=== PATIENT | female | born 1980 | race Two or more races ===

== ENCOUNTER 2025-02-17 09:23 | Inpatient (IN) | payer MEDICAID, SELFPAY ==
[2025-02-17 09:52] VITALS: BP 143/93; PULSE 89; RESP 18; TEMP 37.1; O2SAT 99; BMI 37.6
--- NOTE | 2025-02-17 10:07 | XR_ITS ---
EXAMINATION: PA chest single view TECHNIQUE: Upright PA chest single view Date and time: February 17, 2025, 10:28 a.m., comparison October 14, 2018 INDICATIONS: Shortness of breath chest pain today FINDINGS: Minimal prominence left ventricle. 3 mm pulmonary nodule left upper lobe No interval pneumonia or pulmonary edema compared with October 14, 2018 The osseous structures are intact IMPRESSION: No interval pneumonia or pulmonary edema Recommend 3-month follow-up PA chest to document stability of small pulmonary nodule left upper lobe
--- NOTE | 2025-02-17 10:07 | EKG_ITS ---
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
--- NOTE | 2025-02-17 10:08 | PD.EDRME ---
Rapid Medical Screening Exam RME Arrival date/time: 02/17/25 09:23 This is a 44-year-old female that comes into the emergency room with complaints of chest pain that started today. Patient states it was unprovoked. Patient describes it as a pressure in her chest that nothing makes it better. Patient denies anxiety however states that because of the chest pain she got very anxious. Patient has a history of high blood pressure. She denies taking medication for this. I have greeted and performed a focused initial assessment of this patient. Initial appropriate labs ordered at this time. A comprehensive ED assessment and evaluation of the patient and analysis of all test and completion of medical decision making process will be conducted by additional ED provider. Chief Complaint: Chest Pain Time Seen by Provider: 02/17/25 09:48 Vital signs: Vital Signs Temperature 98.8 F 02/17/25 09:52 Pulse Rate 89 02/17/25 09:52 Respiratory Rate 18 02/17/25 09:52 Blood Pressure 143/93 H 02/17/25 09:52 Pulse Oximetry (%) 99 02/17/25 09:52 Oxygen Delivery Method Room Air 02/17/25 09:52
[2025-02-17 10:37] LABS: Basophils # (Auto) 0.1 Thou/mm3 (0.0-0.2); Basophils % (Auto) 1 % (0-2.5); Eosinophils # (Auto) 0.1 Thou/mm3 (0.0-0.5); Eosinophils % (Auto) 1 % (0-10); Hematocrit 41.3 % (36.0-46.0); Hemoglobin 13.7 g/dL (12.0-16.0); Immature Granulocytes Auto 0.03 Thou/mm3 (0.00-0.00); Lymphocytes # (Auto) 2.0 Thou/mm3 (1.0-4.8); Lymphocytes % (Auto) 16 % (10-50); Mean Corpuscular HGB Conc 33.2 g/dl (31.0-37.0); Mean Corpuscular Hemoglobin 27.1 pg (25.0-35.0); Mean Corpuscular Volume 82 fL (80-100); Monocytes # (Auto) 0.6 Thou/mm3 (0.0-0.8); Monocytes % (Auto) 5 % (0-12); Neutrophils # (Auto) 9.4 Thou/mm3 (1.8-7.7); Neutrophils % (Auto) 77 % (37-80); Nucleated Red Blood Cell # 0.00 Thou/mm3 (0.00-0.00); Nucleated Red Blood Cell % 0 /100 WBC (0); Platelet Count 291 Thou/mm3 (140-440); RDW Standard Deviation 40.3 fL (36.4-46.3); Red Blood Count 5.05 Miln/mm3 (4.00-5.20); White Blood Count 12.2 Thou/mm3 (3.6-11.0)
[2025-02-17 10:57] LABS: B-Type Natriuretic Peptide < 20 pg/mL (0-100)
[2025-02-17 11:00] LABS: Alanine Aminotransferase 11 U/L (10-49); Albumin, Serum 4.3 gm/dL (3.5-5.0); Albumin/Globulin Ratio 1.6 (1.2-2.2); Alkaline Phosphatase 80 U/L (46-116); Anion Gap 10 (7-16); Aspartate Amino Transferase 14 U/L (0-34); BUN/Creatinine Ratio 13 Ratio (12-20); Bilirubin,Total 0.4 mg/dL (0.3-1.2); Blood Urea Nitrogen 10 mg/dL (9-23); Calcium 8.6 mg/dL (8.3-10.6); Calcium (Corrected) 8.6 mg/dL (8.5-10.1); Carbon Dioxide 24.6 mMol/L (20.0-31.0); Chloride 105 mMol/L (98-107); Creatinine (Component) 0.8 mg/dL (0.6-1.3); Estimated Creatinine Clearance 108.8 mL/min (>60); Globulin 2.7 gm/dL (2.3-3.5); Glucose 104 mg/dL (74-106); Osmolality,Calculated 278 (275-295); Potassium 4.2 mMol/L (3.4-5.1); Sodium 140 mMol/L (136-145); Total Protein 7.0 gm/dL (5.7-8.2); Troponin I 0.023 ng/mL (0.0-0.045); eGFR > 60 See Note
[2025-02-17 11:17] LABS: Amphetamine/Methamp Scrn,U Negative (Negative); Barbiturate Screen,Urine Negative (Negative); Benzodiazepines Screen,Urine Negative (Negative); Benzoylecgonine Screen, Ur Negative (Negative); Fentanyl Screen,Urine Negative (Negative); Opiate Screen,Urine Negative (Negative); THC Screen,Urine Negative (Negative)
--- NOTE | 2025-02-17 13:23 | PD.EDCHEST ---
ED Chest Pain RME/HPI General Chief Complaint: Chest Pain Stated Complaint: CHEST PAIN WITH SOB Time Seen by Provider: 02/17/25 09:48 Arrival date/time: 02/17/25 09:23 Limitations: no limitations RME / HPI RME / HPI narrative: 02/17/25 09:23 This is a 44-year-old female that comes into the emergency room with complaints of chest pain that started today. Patient states it was unprovoked. Patient describes it as a pressure in her chest that nothing makes it better. Patient denies anxiety however states that because of the chest pain she got very anxious. Patient has a history of high blood pressure. She denies taking medication for this. I have greeted and performed a focused initial assessment of this patient. Initial appropriate labs ordered at this time. A comprehensive ED assessment and evaluation of the patient and analysis of all test and completion of medical decision making process will be conducted by additional ED provider. Dr. Salmeron evaluation. Patient is [id number] female seen emerged permit concerns for chest pain. Symptoms started while laying down facedown in bed earlier today. Denies any nausea vomiting cough runny nose dysuria hematuria melena bloody stools. No drugs alcohol smoking Related Data Home Medications ?Medication ?Instructions ?Recorded ?Confirmed semaglutide 2 mg/dose (8 mg/3 mL) 2 mg subcut .Weekly 02/17/25 02/17/25 subcutaneous pen injector (Ozempic) Allergies Allergy/AdvReac Type Severity Reaction Status Date / Time Penicillins Allergy Mild Rash Verified 02/17/25 09:26 ED Exam General Limitations: Present no limitations General appearance: Present alert and in no apparent distress Head Head exam: Present atraumatic and normocephalic Eye Eye exam: Present normal appearance and PERRL ENT ENT exam: Present normal exam and normal oropharynx Neck Neck exam: Present normal inspection Chest Chest inspection: Present normal inspection and symmetric chest wall rise Respiratory Respiratory exam: Present normal lung sounds bilaterally; Absent respiratory distress Cardiovascular Cardiovascular exam: Present regular rate and normal rhythm Abdominal Exam Abdominal exam: Present soft and tenderness (Mild tenderness palpation in the epigastrium, no rebound or guarding); Absent distention Extremities Exam Extremities exam: Present normal inspection Neurological Exam Neurological exam: Present alert, CN II-XII intact and normal gait Psychiatric Psychiatric exam: Present normal affect and normal mood Course Quality Measures none Orders Category Date Time Status EKG (ED ONLY) *Do not use* NOW Care 02/17/25 10:08 Completed EKG (ED ONLY) *Do not use* NOW Care 02/17/25 15:22 Completed Notify provider NOW Care 02/17/25 15:30 Completed Consult to Cardiology Stat Cons 02/17/25 15:25 Ordered EKG (ED Only) Stat Exams 02/17/25 10:07 Draft EKG (ED Only) Stat Exams 02/17/25 15:22 Ordered US abdomen limited Stat Exams 02/17/25 13:29 Completed XR chest 1V Stat Exams 02/17/25 10:07 Completed BNP [B-Type Natriuretic Peptide] Stat Lab 02/17/25 10:23 Completed CBC Stat Lab 02/17/25 10:23 Completed Comprehensive Metabolic Panel Stat Lab 02/17/25 10:23 Completed Drug Screen,Urine Stat Lab 02/17/25 10:30 Completed Lipase Stat Lab 02/17/25 14:40 Completed PT [Prothrombin Time with INR] Stat Lab 02/17/25 14:40 Completed PTT [Partial Thromboplastin Time] Stat Lab 02/17/25 14:40 Completed Partial Thromboplastin Time AM DRAW Lab 02/19/25 05:08 Completed Prothrombin Time with INR AM DRAW Lab 02/19/25 05:08 Completed Troponin I Stat Lab 02/17/25 10:23 Completed Troponin I Stat Lab 02/17/25 14:40 Completed Aspirin Chew Med 02/17/25 13:29 Discontinued 81 mg PO X1 ONE Heparin Inj Med 02/17/25 17:00 Discontinued 4,000 unit IV X1 ONE Heparin/D5w 25K 250 ML Ivpb [Heparin in D5w Ivpb] Med 02/17/25 17:00 Discontinued 25,000 unit in 250 ml IV 9.744 units/kg/hr Lidocaine 2% Viscous [Xylocaine 2% Viscous] Med 02/17/25 13:29 Discontinued 15 ml PO X1 ONE mg Hyd/Al Hyd/Lety Susp [Maalox Susp] Med 02/17/25 13:29 Discontinued 30 ml PO X1 ONE Vital Signs Vital signs: Vital Signs Temperature 98.8 F 02/17/25 09:52 Pulse Rate 89 02/17/25 09:52 Respiratory Rate 18 02/17/25 09:52 Blood Pressure 143/93 H 02/17/25 09:52 Pulse Oximetry (%) 99 10/19/25 09:52 Oxygen Delivery Method Room Air 02/17/25 09:52 Chest Pain MDM Narrative MDM Narrative:: Patient is a 42-year-old female seen emerged from concerns for chest pain. Vital signs and exam as listed. Concern for ACS arrhythmia electrolyte abnormality among others. Prior provider evaluated patient. Ordered labs EKG chest x-ray. Offered medication for symptom relief. Labs with evidence of leukocytosis 12.2, no left shift no other acute hematologic abnormality, no significant metabolic derangement, no transaminitis, troponin not elevated, BNP normal. Urine drug screen negative. EKG performed today at 1008, notable for sinus rhythm, normal intervals, nonspecific T wave changes, not a cardiac alert. 1:25p on reevaluation patient states that she continues to have chest pain. Patient does not know if she still has her gallbladder. States she has only had a surgery to remove a cyst on her ovary in the past. Denies any lower abdominal pain. Has mild epigastric pain. Denies drugs alcohol smoking. Symptoms started while patient was laying flat in bed. Ordered for repeat troponin, right upper quadrant ultrasound as well as lipase. Also offered medication for symptom relief. Lipase normal RUQ w/o evidence of cholecystitis, however there is a comment of primary paracenteses by the radiologist. I called and left a message for clarification. Patient does not have any history of recent travel, no intermittent fevers, no nausea no vomiting. Repeat troponin 0.350. 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 Cruz. Agrees with admission and heparin. No emergent cardiac intervention tonight but will consult on patient. Discussed case with hospitalist kindly accepts patient for admission Patient data External records reviewed:: [facility] previous records Clinical information provided by:: patient Social determinants that could affect healthcare access:: none Patient has the following chronic illnesses:: see mdm How is presenting disease/condition affected by chronic disease/condition?: uneffected by Evaluation data The following diagnostics were reviewed and interpreted by me:: lab results, radiology exam(s) and EKG tracing(s) Lab and/or radiology exams considered but not ordered:: none Interpretation Summary: see mdm Medications / Prescriptions Medications or Prescriptions considered but not ordered:: none Medication administrations:: Medication Administration History Discontinued Medications Acetaminophen (Acetaminophen 325 Mg Tablet) 650 mg PO Q6H PRN PRN Reason: Fever >100.4 or pain Stop: 03/19/25 16:38 Acetaminophen (Acetaminophen 325 Mg Tablet) 650 mg PO Q6H PRN PRN Reason: Fever >100.4 or pain Stop: 03/19/25 16:38 Acetaminophen (Acetaminophen 325 Mg Tablet) 650 mg PO Q6H PRN PRN Reason: Fever >100.4 or pain 1-3 Stop: 03/19/25 16:38 Al Hydrox/Mg Hydrox/Simethicone (Mg Hyd/Al Hyd/Lety (Maalox Reg) Susp 30 Ml Udc) 30 ml PO X1 ONE Stop: 02/17/25 13:30 Last Admin: 02/17/25 13:40 Dose: 30 ml Documented By: VL Al Hydrox/Mg Hydrox/Simethicone (Mg Hyd/Al Hyd/Lety (Maalox Reg) Susp 30 Ml Udc) 30 ml PO Q6H PRN PRN Reason: Dyspepsia Stop: 03/19/25 17:14 Aspirin (Aspirin 81 Mg Chew) 81 mg PO X1 ONE Stop: 02/17/25 13:30 Last Admin: 02/17/25 13:40 Dose: 81 mg Documented By: MELINDA Aspirin (Aspirin Ec 81 Mg Tabec) 81 mg PO QDAY ABRAM Stop: 03/20/25 08:59 Last Admin: 02/18/25 10:34 Dose: 81 mg Documented By: Admin: 02/18/25 08:25 Dose: Not Given Documented By: MAGGY Non-Admin Reason: NPO Aspirin (Aspirin Ec 81 Mg Tabec) 243 mg PO X1 ONE Stop: 02/17/25 17:01 Last Admin: 02/17/25 19:15 Dose: 243 mg Documented By: CS Atorvastatin Calcium (Atorvastatin Calcium 20 Mg Tablet) 80 mg PO HS ABRAM Stop: 03/19/25 20:59 Last Admin: 02/18/25 20:02 Dose: 80 mg Documented By: Admin: 02/17/25 21:05 Dose: 80 mg Documented By: CB Atropine Sulfate (Atropine Sulf Inj 1 Mg/Ml Vial) Confirm Administered Dose 1 mg .ROUTE .STK-MED ONE Stop: 02/19/25 06:52 Last Admin: 02/19/25 08:52 Dose: Not Given Documented By: EC Non-Admin Reason: Duplicate Medication on eMAR Clopidogrel Bisulfate (Clopidogrel Bisulfate 75 Mg Tablet) 300 mg PO X1 ONE Stop: 02/17/25 16:44 Last Admin: 02/17/25 19:15 Dose: 300 mg Documented By: CHRIS Clopidogrel Bisulfate (Clopidogrel Bisulfate 75 Mg Tablet) 75 mg PO QDAY ABRAM Stop: 03/20/25 08:59 Last Admin: 02/18/25 10:34 Dose: 75 mg Documented By: Admin: 02/18/25 08:25 Dose: Not Given Documented By: WG Non-Admin Reason: NPO Epinephrine HCl (Epinephrine Inj 0.1 Mg/Ml Syringe 10ml) Confirm Administered Dose 1 mg .ROUTE .STK-MED ONE Stop: 02/19/25 06:53 Last Admin: 02/19/25 08:53 Dose: Not Given Documented By: EC Non-Admin Reason: Duplicate Medication on eMAR Fentanyl Citrate (Fentanyl Cit Inj 50 Mcg/Ml Amp 2ml) Confirm Administered Dose 100 mcg .ROUTE .STK-MED ONE Stop: 02/19/25 06:51 Last Admin: 02/19/25 08:52 Dose: Not Given Documented By: EC Non-Admin Reason: Duplicate Medication on eMAR Flumazenil (Flumazenil Inj 0.1 Mg/Ml Vial 10 Ml) Confirm Administered Dose 1 mg .ROUTE .STK-MED ONE Stop: 02/19/25 06:53 Last Admin: 02/19/25 08:53 Dose: Not Given Documented By: EC Non-Admin Reason: Duplicate Medication on eMAR Heparin Sodium (Porcine) (Heparin Sod Inj 5000 Unit/Ml Vial) 4,000 unit IV X1 ONE; Protocol Stop: 02/17/25 17:01 Last Admin: 02/17/25 19:44 Dose: 4,000 unit Documented By: JOSE MANUEL Co-signed By: CCT Comments: MEDICATION LATE DUE TO NO IV ASSESS DURING DAY SHIFT. Heparin Sodium (Porcine) (Heparin Sod Inj 5000 Unit/Ml Vial) 4,000 unit IV X1 ONE Stop: 02/18/25 04:25 Last Admin: 02/18/25 04:44 Dose: 4,000 unit Documented By: ROSALES Co-signed By: COURTNEY Heparin Sodium (Porcine) (Heparin Sod Inj 5000 Unit/Ml Vial) 2,000 unit IVP X1 ONE Stop: 02/18/25 11:37 Last Admin: 02/18/25 11:51 Dose: 2,000 unit Documented By: MAGGY Co-signed By: OLIVA Heparin Sodium (Porcine) (Heparin Sod Inj 1000 Unit/Ml Vial 10 Ml) Confirm Administered Dose 20,000 unit .ROUTE .STK-MED ONE Stop: 02/19/25 06:53 Last Admin: 02/19/25 08:53 Dose: Not Given Documented By: EC Non-Admin Reason: Duplicate Medication on eMAR Heparin Sodium/Dextrose (Heparin In D5w Ivpb) 25,000 unit in 250 mls @ 10 mls/hr IV .Q24H ABRAM; Protocol Stop: 03/03/25 16:59 Last Titration: 02/19/25 06:00 Dose: Infused Documented By: CCT Co-signed By: IG Titration: 02/19/25 01:41 Dose: 15.744 units/kg/hr, 16.157 mls/hr Documented By: CCT Co-signed By: HV Titration: 02/18/25 19:25 Dose: 15.744 units/kg/hr, 16.157 mls/hr Documented By: CCT Co-signed By: CMC Admin: 02/18/25 14:23 Dose: 15.744 units/kg/hr, 16.157 mls/hr Documented By: WG Co-signed By: BR Titration: 02/18/25 14:23 Dose: Infused Documented By: WG Co-signed By: BR Titration: 02/18/25 11:49 Dose: 15.744 units/kg/hr, 16.157 mls/hr Documented By: WG Co-signed By: DA Titration: 02/18/25 04:45 Dose: 13.744 units/kg/hr, 14.105 mls/hr Documented By: SD Co-signed By: COURTNEY Admin: 02/17/25 19:45 Dose: 9.744 units/kg/hr, 10 mls/hr Documented By: CB Co-signed By: CCT Lactated Ringer's (Lactated Ringers) 1,000 mls @ 75 mls/hr IV .[id number] ABRAM Stop: 02/18/25 06:49 Last Admin: 02/17/25 19:52 Dose: Not Given Documented By: CB Non-Admin Reason: Discontinued Potassium Chloride (Kcl Ivpb) 10 meq in 100 mls @ 100 mls/hr IV Q1H ABRAM Stop: 02/18/25 11:41 Last Admin: 02/18/25 11:18 Dose: 100 mls/hr Documented By: Infusion: 02/18/25 11:11 Dose: Infused Documented By: Admin: 02/18/25 10:11 Dose: 100 mls/hr Documented By: Infusion: 02/18/25 10:11 Dose: Infused Documented By: Admin: 02/18/25 09:14 Dose: 100 mls/hr Documented By: Infusion: 02/18/25 09:09 Dose: Infused Documented By: Admin: 02/18/25 08:09 Dose: 100 mls/hr Documented By: MAGGY Potassium Chloride (Kcl Ivpb) 10 meq in 100 mls @ 100 mls/hr IV Q1H ABRAM Stop: 02/18/25 09:41 Nitroglycerin/Dextrose (Nitroglycerin In D5w Ivpb) Confirm Administered Dose 50 mg in 250 mls @ ud .ROUTE .STK-MED ONE Stop: 02/19/25 06:54 Last Admin: 02/19/25 08:54 Dose: Not Given Documented By: EC Non-Admin Reason: Duplicate Medication on eMAR Lidocaine HCl (Lidocaine Viscous 2% 15 Ml Udc) 15 ml PO X1 ONE Stop: 02/17/25 13:30 Last Admin: 02/17/25 13:40 Dose: 15 ml Documented By: MELINDA Lidocaine HCl (Lidocaine Inj Pf 1% 30 Ml Vial) Confirm Administered Dose 30 ml .ROUTE .STK-MED ONE Stop: 02/19/25 06:53 Last Admin: 02/19/25 08:54 Dose: Not Given Documented By: EC Non-Admin Reason: Duplicate Medication on eMAR Losartan Potassium (Losartan Potassium 25 Mg Tablet) 25 mg PO QDAY ABRAM Stop: 03/20/25 13:24 Last Admin: 02/18/25 13:35 Dose: 25 mg Documented By: MAGGY Losartan Potassium (Losartan Potassium 25 Mg Tablet) 50 mg PO QDAY ABRAM Stop: 03/21/25 08:59 Last Admin: 02/19/25 10:00 Dose: Not Given Documented By: EC Non-Admin Reason: Cancelled by Provider Comments: Hold for now per Metoprolol Tartrate (Metoprolol Tartrate Inj 1 Mg/Ml Amp 5 Ml) Confirm Administered Dose 15 mg .ROUTE .STK-MED ONE Stop: 02/19/25 06:52 Last Admin: 02/19/25 08:53 Dose: Not Given Documented By: EC Non-Admin Reason: Duplicate Medication on eMAR Midazolam HCl (Midazolam Inj 1 Mg/Ml Vial 2 Ml) Confirm Administered Dose 2 mg .ROUTE .STK-MED ONE Stop: 02/19/25 06:51 Last Admin: 02/19/25 08:52 Dose: Not Given Documented By: EC Non-Admin Reason: Duplicate Medication on eMAR Morphine Sulfate (Morphine Sulf Inj 4 Mg/Ml Vial) 1 mg IVP Q6HR PRN PRN Reason: PAIN SCALE 4-10(Mod-Sev Stop: 02/22/25 17:09 Naloxone HCl (Naloxone Inj 0.4 Mg/Ml Vial) Confirm Administered Dose 1.2 mg .ROUTE .STK-MED ONE Stop: 02/19/25 06:52 Last Admin: 02/19/25 08:53 Dose: Not Given Documented By: EC Non-Admin Reason: Duplicate Medication on eMAR Ondansetron HCl (Ondansetron Inj 2 Mg/Ml Inj 2 Ml) 4 mg IVP Q6H PRN; Protocol PRN Reason: NAUSEA OR VOMITING Stop: 03/19/25 16:38 Phenylephrine HCl (Phenylephrine Inj In Ns 100 Mcg/Ml 10 Ml Syringe) Confirm Administered Dose 1,000 mcg .ROUTE .STK-MED ONE Stop: 02/19/25 06:53 Last Admin: 02/19/25 08:54 Dose: Not Given Documented By: EC Non-Admin Reason: Duplicate Medication on eMAR Verapamil HCl (Verapamil Inj 2.5 Mg/Ml Vial 2 Ml) Confirm Administered Dose 5 mg .ROUTE .STK-MED ONE Stop: 02/19/25 06:52 Last Admin: 02/19/25 08:53 Dose: Not Given Documented By: EC Non-Admin Reason: Duplicate Medication on eMAR see above Consultations Consultation(s) initiated? (list below): Yes Diagnosis Chest Pain Differential Diagnosis: other (see mdm ) Most likely diagnosis given after review of the tests above:: NSTEMI Admission Indicated Admission indicated?: indicated Admission Request Was there a request for admission?: Yes Admission Attestation Admission request attestation: Discussed case with [] from Hospitalist service regarding admission. Discussed patients ED course, exam findings, labs, and radiology results. The Hospitalist [agrees,declines] to accept the patient for admission. Disposition Plan Disposition Plan: Admit Critical Care Time Critical Care Time Critical Care Time: Yes Total Critical Care Time (min.): 45 Attestation: Total critical care time: Approximately?45?minutes Due to a high probability of clinically significant, life threatening deterioration, the patient required my highest level of preparedness to intervene emergently and I personally spent this critical care time directly and personally managing the patient. This critical care time included obtaining a history; examining the patient; pulse oximetry; ordering and review of studies; arranging urgent treatment with development of a management plan; evaluation of patient's response to treatment; frequent reassessment; and, discussions with other providers. This critical care time was performed to assess and manage the high probability of imminent, life-threatening deterioration that could result in multi-organ failure. It was exclusive of separately billable procedures and treating other patients and teaching time. Please see MDM section and the rest of the note for further information on patient assessment and treatment. Discharge Plan Plan Patient Disposition: Admit Acute Care w/in Hospital Patient condition on transfer: Stable Problem List Clinical Impression: Chest pain Patient/Caregiver Discharge Instructions Discharge Activity: return to work once clear
--- NOTE | 2025-02-17 13:29 | XR_ITS ---
Examination: Abdomen sonogram, Limited Date and time of exam: February 17, 2025, 1348 hours, and comparison January 07, 2016 INDICATIONS: Chest pain vomiting epigastric pain today Technique: Real-time peguero scale transabdominal sonographic images of the upper abdomen obtained. Findings: Absent gallbladder. Normal common bile duct 0.4 cm Pancreatic head 2.0 cm Liver 17.2 cm fatty infiltration lobular contour Normal hepatopetal portal venous flow Patent IVC. IMPRESSION: Normal common bile duct Suspect primary parasite or disease
[2025-02-17] MEDS: LIDOCAINE VISCOUS 2% 15 ML UDC PO (13:40)
[2025-02-17] MEDS: MG HYD/AL HYD/SIME (Maalox Reg) SUSP 30 ML UDC PO (13:40)
[2025-02-17] MEDS: ASPIRIN 81 MG CHEW PO (13:40)
[2025-02-17 15:19] LABS: Lipase 47 U/L (12-53)
[2025-02-17 15:20] LABS: Troponin I 0.350 ng/mL (0.0-0.045)
[2025-02-17 16:39] LABS: INR 1.0 (0.9-1.3); Partial Thromboplastin Time 28.9 Seconds (22.0-36.0); Prothrombin Time 10.4 Seconds (9.0-12.2)
--- NOTE | 2025-02-17 16:49 | ESCONSULT_ITS ---
<Statement entered by Iesha Cruz MD - 02/22/25 13:37> I personally examined the patient and evaluated the patient with resident physician PGY 2 Dr. Marcio BRADY patient present to the hospital typical angina pectoris at rest acute coronary syndrome NSTEMI will recommend continuing IV heparin aspirin scheduled for coronary angiogram patient has fairly significant enzyme elevation as well as classic classic findings of acute coronary syndrome. Evaluated patient with resident physician agree with the treatment plan recommendation as documented. HPI Data of Consult Primary Care Provider: Yair Haynes MD Consult Narrative History of present illness: Amy Cotton is a 44-year-old female with a past medical history of prediabetes and hypertension who presents with chief complaint of chest discomfort. States that beginning around 5 AM on morning of presentation, she had abrupt onset substernal chest pressure with associated shortness of breath. No radiation into her arms or neck but did have an episode of nausea and nonbloody emesis x 1. Symptoms began while she was lying down and has never happened to her prior to this episode. She states that chest pressure comes and goes but was still experiencing it at time of interview. Shortness of breath has improved but also states that she feels anxious. Also states that her parents have never had a stroke or heart attack and has one sister who is otherwise healthy. Does not take any medications other than ozempic and used to take metoprolol in the past but her blood pressure at home has improved with weight loss. In ED, initial vitals were hemodynamically stable with BP of 143/93 and pulse of 89. Initial labs showed mild leukocytosis of 12.2 but otherwise CBC unremarkable. CHEM panel showed initial troponin 0.023 that increased to 0.3 6:05 hours. U tox negative. CXR showed a 3 mm pulmonary nodule left upper lobe. EKG showed sinus rhythm with pulse of [address] or T wave abnormalities. Cardiology consulted for workup of ACS. PMHx: prediabetes, hypertension, obesity Medications: ozempic FHx: noncontributory SHx: works at [employer]; denies smoking, alcohol consumption, or illicit drug use PSHx: tubal ligation, drainage of ovarian cyst, cholecystectomy cc:: cc: Review of Systems Review of Systems Systems Reviewed: All systems reviewed, normal except as documented Exam Vital Signs Temp Pulse Resp BP Pulse Ox O2 Del Method 98.8 F 89 18 143/93 H 99 Room Air 02/17/25 09:52 02/17/25 09:52 02/17/25 09:52 02/17/25 09:52 02/17/25 09:52 02/17/25 09:52 Narrative Exam General: AOx3, no acute distress, able to speak full sentences HEENT: NC/AT, mucous membranes moist, bilateral sclera anicteric Cardiovascular: regular rate and rhythm, S1/S2 present, no murmurs appreciated Pulmonary: clear to auscultation bilaterally, no rales/rhonchi/wheezes Abdominal: soft, non-tender, non-distended, no rebound/guarding, normal bowel sounds present Musculoskeletal: normal ROM, no peripheral edema Skin: warm and dry, intact, no rashes Neuro: CN II-XII intact, no focal deficits Results Labs 02/17/25 10:23 02/17/25 10:23 Labs: Short CBC 02/17/25 Range/Units 10:23 WBC 12.2 H (3.6-11.0) Thou/mm3 Hgb 13.7 (12.0-16.0) g/dL Hct 41.3 (36.0-46.0) % Plt Count 291 (140-440) Thou/mm3 BMP 02/17/25 10:23 Sodium 140 Potassium 4.2 Chloride 105 Carbon Dioxide 24.6 BUN 10 Creatinine 0.8 Glucose 104 Calcium 8.6 Cardiac Enzymes 02/17/25 02/17/25 Range/Units 10:23 14:40 Troponin I 0.023 0.350 H* D (0.0-0.045) ng/mL Liver Function 02/17/25 Range/Units 10:23 Total Bilirubin 0.4 (0.3-1.2) mg/dL AST 14 (0-34) U/L ALT 11 (10-49) U/L Alkaline Phosphatase 80 (46-116) U/L Albumin 4.3 (3.5-5.0) gm/dL Quality Measures Quality Measures VTE prophylaxis Medications Home Medications and Allergies Home Medications ?Medication ?Instructions ?Recorded ?Confirmed ?Type Unobtainable 10/15/18 10/15/18 History Allergies Allergy/AdvReac Type Severity Reaction Status Date / Time Penicillins Allergy Mild Rash Verified 02/17/25 09:26 Visit Medications Acetaminophen (Acetaminophen 325 Mg Tablet) 650 mg PO Q6H PRN PRN Reason: Fever >100.4 or pain Stop: 03/19/25 16:38 Aspirin (Aspirin Ec 81 Mg Tabec) 81 mg PO QDAY [facility] Stop: 03/20/25 08:59 Atorvastatin Calcium (Atorvastatin Calcium 20 Mg Tablet) 80 mg PO HS [facility] Stop: 03/19/25 20:59 Clopidogrel Bisulfate (Clopidogrel Bisulfate 75 Mg Tablet) 75 mg PO QDAY [facility] Stop: 03/20/25 08:59 Heparin Sodium (Porcine) (Heparin Sod Inj 5000 Unit/Ml Vial) 4,000 unit IV X1 ONE; Protocol Stop: 02/17/25 15:31 Heparin Sodium/Dextrose (Heparin In D5w Ivpb) 25,000 unit in 250 mls @ 12.315 mls/hr IV .[id number] [facility]; Protocol Stop: 03/03/25 15:29 Ondansetron HCl (Ondansetron Inj 2 Mg/Ml Inj 2 Ml) 4 mg IVP Q6H PRN; Protocol PRN Reason: NAUSEA OR VOMITING Stop: 03/19/25 16:38 Discontinued Medications Al Hydrox/Mg Hydrox/Simethicone (Mg Hyd/Al Hyd/Lety (Maalox Reg) Susp 30 Ml Udc) 30 ml PO X1 ONE Stop: 02/17/25 13:30 Last Admin: 02/17/25 13:40 Dose: 30 ml Aspirin (Aspirin 81 Mg Chew) 81 mg PO X1 ONE Stop: 02/17/25 13:30 Last Admin: 02/17/25 13:40 Dose: 81 mg Clopidogrel Bisulfate (Clopidogrel Bisulfate 75 Mg Tablet) 300 mg PO X1 ONE Stop: 02/17/25 16:44 Lidocaine HCl (Lidocaine Viscous 2% 15 Ml Udc) 15 ml PO X1 ONE Stop: 02/17/25 13:30 Last Admin: 02/17/25 13:40 Dose: 15 ml Assessment & Plan Plan Amy Cotton is a 44-year-old female with a past medical history of prediabetes and hypertension who is admitted and cardiology consulted for work- up of ACS. #? Acute coronary syndrome/NSTEMI Presents with abrupt onset substernal chest pressure with associated shortness of breath, nausea, and vomiting. No prior episodes of chest discomfort and no family history of cardiac disease. Risk factors include hypertension but is relatively well-controlled with weight loss. Vital signs stable. Initial troponin negative but increased to 0.35. EKG reviewed and showed sinus rhythm and no signs of ST or T wave abnormalities. Toxicology negative. Although EKG unremarkable, given history and elevated troponins will manage as ACS with plans for cardiac cath. ? Heparin drip ? Loading dose of aspirin and Plavix, aspirin 81 mg and Plavix 85 mg p.o. daily thereafter ? Agree with high intensity statin ? Pending echo ? N.p.o. after midnight for cardiac cath tomorrow versus Tuesday #Leukocytosis #Pulmonary nodule #Fatty liver ? Management per primary team ----- Plan discussed with attending physician Dr. Anthony Brady MD PGY-2 Internal Medicine
--- NOTE | 2025-02-17 16:52 | ESHP_ITS ---
Documentation for date of: 02/17/25 Senior resident attestation: Patient evaluated and examined at the bedside, plan of care discussed with rest of the team including my attending physician, except as noted. Patient is a 44-year-old female past medical history of hypertension and prediabetes, currently on Ozempic, complaint of sudden onset chest tightness and pressure, symptoms gradually improved, patient was evaluated in the ER lobby. ER spoke to vertical mill operator Dr. Lexi Cruz who recommended admitting the patient for NSTEMI starting patient on heparin drip. #NSTEMI, type I versus type II, patient did report that her chest pain was worse with inspiration, and she feels it is hard to take a deep breath. Possible differentials include pleurisy, no evidence of pneumonia on chest x-ray, pertinent for 3 mm pulmonary nodule left upper lobe, EKG sinus rhythm no acute ST segment changes. Currently on heparin drip, tentative plan for cardiac cath in the morning, patient will be made n.p.o. at midnight. 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 Patient reports this morning upon getting up from the bathroom she noticed some chest tightness, central nonradiating initially started out as 3/10. However throughout the day, patient reports 1 episode of nonbilious vomiting with increasing chest tightness up to 8/10, prompting ED visit. Reports never having similar chest tightness before. Chest pain described as tight across the anterior chest, nonradiating, waxes and wanes, and exacerbated by deep inspiration. Not dependent on position or reproducible on palpation. Denies any recent illness or travel or fever/chills. Reports using steroids earlier this year for Rodriguez's palsy in 06/2024 completed course of steroids. Currently patient endorses chest pain and shallow breathing due to pain on deep inspiration. PMHx: as above Surgical Hx: Ovarian cyst removal, tubal ligation, remote cholecystectomy secondary to stones FHx: Father diabetes, hypertension, stroke Social Hx: Denies tobacco, alcoholic, recreational/illicit drug use Allergies: Penicillin rash Medications: Ozempic 2 mg qwk In ED, BP 143/93 HR 89 RR 18 afebrile, satting 99% RA, WBC 12.2, trop 0.023- >0.350, BNP<20. In ED, given ASA 81x1, Maalox, lodicaine 15 mL PO x1. CXR no interval PNA or pulmonary edema, 3mm pulmonary nodule L upper lobe, EKG sinus rhythm rate [address] segment changes, Abd US normal CBD. Cardiology consulted for NSTEMI. Patient was admitted for management of NSTEMI. Exam Vital Signs Temp Pulse Resp BP Pulse Ox O2 Del Method 98.8 F 89 18 143/93 H 99 Room Air 02/17/25 09:52 02/17/25 09:52 02/17/25 09:52 02/17/25 09:52 02/17/25 09:52 02/17/25 09:52 Narrative Exam GENERAL: AOx3, tearful, obese well groomed female HEENT: mucous membranes moist, bilateral sclera anicteric CARDIOVASCULAR: regular rate and rhythm, S1/S2 present, no murmurs appreciated PULMONARY: clear to auscultation bilaterally, no rales/rhonchi/wheezes ABDOMINAL: soft, non-tender, non-distended, no rebound/guarding, bowel sounds present EXTREMITIES: no peripheral edema SKIN: warm and dry, intact, no rashes NEURO: CN II-XII grossly intact, no focal deficits, alert, following commands Results: Labs 02/18/25 03:15 02/18/25 03:15 Labs: Short CBC 02/17/25 Range/Units 10:23 WBC 12.2 H (3.6-11.0) Thou/mm3 Hgb 13.7 (12.0-16.0) g/dL Hct 41.3 (36.0-46.0) % Plt Count 291 (140-440) Thou/mm3 BMP 02/17/25 10:23 Sodium 140 Potassium 4.2 Chloride 105 Carbon Dioxide 24.6 BUN 10 Creatinine 0.8 Glucose 104 Calcium 8.6 Cardiac Enzymes 02/17/25 02/17/25 Range/Units 10:23 14:40 Troponin I 0.023 0.350 H* D (0.0-0.045) ng/mL Liver Function 02/17/25 Range/Units 10:23 Total Bilirubin 0.4 (0.3-1.2) mg/dL AST 14 (0-34) U/L ALT 11 (10-49) U/L Alkaline Phosphatase 80 (46-116) U/L Albumin 4.3 (3.5-5.0) gm/dL Quality Measures Quality Measures VTE prophylaxis Medications Home Medications and Allergies Home Medications ?Medication ?Instructions ?Recorded ?Confirmed ?Type semaglutide 2 mg/dose (8 mg/3 mL) 2 mg subcut .Weekly 02/17/25 02/17/25 History subcutaneous pen injector (Ozempic) Allergies Allergy/AdvReac Type Severity Reaction Status Date / Time Penicillins Allergy Mild Rash Verified 02/17/25 09:26 Visit Medications Acetaminophen (Acetaminophen 325 Mg Tablet) 650 mg PO Q6H PRN PRN Reason: Fever >100.4 or pain Stop: 03/19/25 16:38 Aspirin (Aspirin Ec 81 Mg Tabec) 81 mg PO QDAY [facility] Stop: 03/20/25 08:59 Atorvastatin Calcium (Atorvastatin Calcium 20 Mg Tablet) 80 mg PO HS [facility] Stop: 03/19/25 20:59 Clopidogrel Bisulfate (Clopidogrel Bisulfate 75 Mg Tablet) 75 mg PO QDAY [facility] Stop: 03/20/25 08:59 Heparin Sodium (Porcine) (Heparin Sod Inj 5000 Unit/Ml Vial) 4,000 unit IV X1 ONE; Protocol Stop: 02/17/25 17:01 Heparin Sodium/Dextrose (Heparin In D5w Ivpb) 25,000 unit in 250 mls @ 10 mls/hr IV .Q24H [facility]; Protocol Stop: 03/03/25 16:59 Ondansetron HCl (Ondansetron Inj 2 Mg/Ml Inj 2 Ml) 4 mg IVP Q6H PRN; Protocol PRN Reason: NAUSEA OR VOMITING Stop: 03/19/25 16:38 Discontinued Medications Al Hydrox/Mg Hydrox/Simethicone (Mg Hyd/Al Hyd/Lety (Maalox Reg) Susp 30 Ml Udc) 30 ml PO X1 ONE Stop: 02/17/25 13:30 Last Admin: 02/17/25 13:40 Dose: 30 ml Aspirin (Aspirin 81 Mg Chew) 81 mg PO X1 ONE Stop: 02/17/25 13:30 Last Admin: 02/17/25 13:40 Dose: 81 mg Clopidogrel Bisulfate (Clopidogrel Bisulfate 75 Mg Tablet) 300 mg PO X1 ONE Stop: 02/17/25 16:44 Lidocaine HCl (Lidocaine Viscous 2% 15 Ml Udc) 15 ml PO X1 ONE Stop: 02/17/25 13:30 Last Admin: 02/17/25 13:40 Dose: 15 ml Assessment & Plan Plan Amy Cotton 44F pmhx significant for HTN, prediabetes, and 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 #NSTEMI, type I vs type II #Leukocytosis, likely reactive Presented with acute chest tightness, worse in deep inspiration. Per chart review, has a hx of chest pain in 2019 and was supposed to see a vertical mill operator. Does not have vertical mill operator at this time. 06/2024, prescribed short course of prednisone for Rodriguez's palsy. Admission WBC 12.2, trop 0.023->0.350, BNP<20. UDS neg. CXR no interval PNA or pulmonary edema, 3mm pulmonary nodule L upper lobe, EKG sinus rhythm rate [address] segment changes, Abd US normal CBD. Ddx: coronary vasospasm vs NSTEMI type 1 vs autoimmune vs infectious, low suspicion as patient denies urinary symptoms and CXR neg, low suspicion for pericarditis given benign EKG and denial of recent illness Plan: - Cardiology consulted: possible cath tomorrow - Heparin drip, loading ASA 325 mg and Plavix 300 mg ordered - ASA 81 mg QD, Plavix 75 mg QD and atorvastatin 80 mg qhs - NPO at midnight - Keep K>4 and Mg>2 at all times - Morphine 1 mg q6h for pain and 1L LR 75cc/hr - F/u TTE #Prediabetes Per history. On Ozempic 2 mg qwk on Mondays Plan: - F/u A1c, lipid panel, TSH #HTN Reported well controlled with Ozempic and weight loss. Plan: - CTM vitals Hospital management: Lines: PIV Diet: cardiac, NPO at midnight Bowel: none GI prophylaxis: none DVT prophylaxis: heparin drip Disposition: tele, NSTEMI cardiac cath likely tomorrow CODE STATUS: FULL CODE Plan of care discussed with attending Dr. Morales, and PGY-3 Dr. Romero. Yamila Carlin, DO PGY-1 Internal Medicine Attending Provider Attestation/Addendum I have seen and examined the patient. I was physically present for the rodas portions of the services provided including history, physical exam, diagnosis, treatment plans and orders. I agree with assessment and plan of care as documented by residents. After examination of the patient and review of the clinical data I feel that this patient needs admission to the hospital for further treatment/evaluation. Even though this this note was carefully revised there may still be minor errors in entry specialists due to voice recognition software. Chris Morales MD
[2025-02-17 17:17] VITALS: BP 147/96; PULSE 88; RESP 20; TEMP 37.1; O2SAT 99
[2025-02-17 17:23] VITALS: BMI 37.5
[2025-02-17] MEDS: ASPIRIN EC 81 MG TABEC 243 MG PO (19:15)
[2025-02-17] MEDS: CLOPIDOGREL BISULFATE 75 MG TABLET 300 MG PO (19:15)
[2025-02-17 19:25] VITALS: BP 139/99; PULSE 89; RESP 19; TEMP 37; O2SAT 95
[2025-02-17] MEDS: HEPARIN SOD INJ 5000 UNIT/ML VIAL 4000 UNIT IV (19:44)
[2025-02-17] MEDS: Heparin/D5w 25K 250 ML Ivpb 25,000 UNIT/250 ML BAG 10 UNIT IV (19:45)
[2025-02-17 21:04] LABS: Troponin I 1.858 ng/mL (0.0-0.045)
[2025-02-17] MEDS: ATORVASTATIN CALCIUM 20 MG TABLET 80 MG PO (21:05)
[2025-02-17 21:08] VITALS: BP 153/89; PULSE 90; RESP 16; TEMP 36.7; O2SAT 95
[2025-02-17 21:44] LABS: Partial Thromboplastin Time 73.0 Seconds (22.0-36.0)
[2025-02-18] VITALS (10 sets, daily range): BP systolic 148–157; BP diastolic 89–100; PULSE 79–114; RESP 18–96; TEMP 36.1–36.9; O2SAT 92–99; BMI 38.1
[2025-02-18 03:36] LABS: Basophils # (Auto) 0.1 Thou/mm3 (0.0-0.2); Basophils % (Auto) 1 % (0-2.5); Eosinophils # (Auto) 0.1 Thou/mm3 (0.0-0.5); Eosinophils % (Auto) 1 % (0-10); Hematocrit 40.8 % (36.0-46.0); Hemoglobin 13.2 g/dL (12.0-16.0); Immature Granulocytes Auto 0.03 Thou/mm3 (0.00-0.00); Lymphocytes # (Auto) 3.1 Thou/mm3 (1.0-4.8); Lymphocytes % (Auto) 27 % (10-50); Mean Corpuscular HGB Conc 32.4 g/dl (31.0-37.0); Mean Corpuscular Hemoglobin 27.0 pg (25.0-35.0); Mean Corpuscular Volume 83 fL (80-100); Monocytes # (Auto) 0.6 Thou/mm3 (0.0-0.8); Monocytes % (Auto) 5 % (0-12); Neutrophils # (Auto) 7.7 Thou/mm3 (1.8-7.7); Neutrophils % (Auto) 66 % (37-80); Nucleated Red Blood Cell # 0.00 Thou/mm3 (0.00-0.00); Nucleated Red Blood Cell % 0 /100 WBC (0); Platelet Count 272 Thou/mm3 (140-440); RDW Standard Deviation 41.4 fL (36.4-46.3); Red Blood Count 4.89 Miln/mm3 (4.00-5.20); White Blood Count 11.6 Thou/mm3 (3.6-11.0)
[2025-02-18 03:46] LABS: Glucose Estimated Average 111 mg/dL (80-131); Hemoglobin A1C 5.5 % Hgb (4.8-6.0)
[2025-02-18 03:51] LABS: Partial Thromboplastin Time 34.7 Seconds (22.0-36.0)
[2025-02-18 04:10] LABS: Alanine Aminotransferase 11 U/L (10-49); Albumin, Serum 3.8 gm/dL (3.5-5.0); Albumin/Globulin Ratio 1.4 (1.2-2.2); Alkaline Phosphatase 77 U/L (46-116); Anion Gap 8 (7-16); Aspartate Amino Transferase 27 U/L (0-34); BUN/Creatinine Ratio 11 Ratio (12-20); Bilirubin,Total 0.5 mg/dL (0.3-1.2); Blood Urea Nitrogen 8 mg/dL (9-23); Calcium 8.6 mg/dL (8.3-10.6); Calcium (Corrected) 8.8 mg/dL (8.5-10.1); Carbon Dioxide 26.0 mMol/L (20.0-31.0); Cardiac Risk Estimate 3.6 RATIO (3.7-5.6); Chloride 105 mMol/L (98-107); Cholesterol 133 mg/dL (132-200); Creatinine (Component) 0.7 mg/dL (0.6-1.3); Estimated Creatinine Clearance 124.3 mL/min (>60); Free T4 (Free Thyroxine) 1.15 ng/dL (0.89-1.76); Globulin 2.7 gm/dL (2.3-3.5); Glucose 102 mg/dL (74-106); HDL Cholesterol 37 mg/dL (40-60); LDL Cholesterol,Calculated 44 mg/dL (0-130); Magnesium 2.0 mg/dL (1.6-2.6); Osmolality,Calculated 275 (275-295); Potassium 3.4 mMol/L (3.4-5.1); Sodium 139 mMol/L (136-145); Thyroid Stimulating Hormone 1.84 uIU/mL (0.55-4.78); Total Protein 6.5 gm/dL (5.7-8.2); Triglycerides 259 mg/dL (30-150); eGFR > 60 See Note
[2025-02-18 04:11] LABS: Troponin I 4.740 ng/mL (0.0-0.045)
[2025-02-18] MEDS: HEPARIN SOD INJ 5000 UNIT/ML VIAL 4000 UNIT IV (04:44)
[2025-02-18] MEDS: POTASSIUM CHL 10 mEq IVPB 10 MEQ/100 ML BAG 100 MEQ IV ×4 (08:09→11:18)
--- NOTE | 2025-02-18 08:38 | ECHO_ITS ---
Transthoracic Echo Report Ht (in): 65 Wt (lb): 226 Exam Location: Echo Lab Status: Inpatient Dining Service Inspector: Mary Cueva Indications: Procedure Performed: BP: 154 / 100 HR: MEASUREMENTS (Male / Female) Normal Values 2D ECHO LV Diastolic Diameter PLAX 4.3 cm 4.2 - 5.9 / 3.9 - 5.3 cm LV Systolic Diameter PLAX 2.7 cm IVS Diastolic Thickness 1.0 cm 0.6 - 1.0 / 0.6 - 0.9 cm LVPW Diastolic Thickness 1.1 cm 0.6 - 1.0 / 0.6 - 0.9 cm LV Relative Wall Thickness 0.5 LVOT Diameter 1.9 cm LA Systolic Diameter LX 2.8 cm 3.0 - 4.0 / 2.7 - 3.8 cm LV Ejection Fraction MOD BP 58.6 % >= 55 % LV Ejection Fraction MOD 4C 58.5 % LV Ejection Fraction 4C AL 59.4 % LV Ejection Fraction MOD 2C 57.1 % LV Ejection Fraction 2C AL 56.7 % LA Volume Index 16.3 cm?/m? 16 - 28 cm?/m? DOPPLER AV Peak Velocity 110.0 cm/s AV Peak Gradient 4.8 mmHg AV Mean Gradient 3.0 mmHg AV Velocity Time Integral 19.0 cm LVOT Peak Velocity 105.0 cm/s LVOT Peak Gradient 4.4 mmHg LVOT Velocity Time Integral 20.6 cm AV Area Cont Eq vti 3.1 cm? AV Area Cont Eq pk 2.7 cm? MV Area PHT 6.5 cm? Mitral E Point Velocity 70.8 cm/s Mitral A Point Velocity 64.0 cm/s Mitral E to A Ratio 1.1 LV E' Lateral Velocity 11.4 cm/s Mitral E to LV E' Lateral Ratio 6.2 LV E' Septal Velocity 7.4 cm/s Mitral E to LV E' Septal Ratio 9.6 PV Peak Velocity 168.0 cm/s PV Peak Gradient 11.3 mmHg FINDINGS Left Ventricle Normal left ventricular size, wall thickness, systolic function with no obvious regional wall motion abnormalities. Normal left ventricular diastolic filling pattern for age. The ejection fraction is visually estimated at 55-60 %. Right Ventricle The right ventricle is normal in size and systolic function. Left Atrium The left atrium is normal by two-dimensional, color flow and Doppler imaging with no structural abnormalities, no thrombus formation present. Right Atrium The right atrium is normal by two-dimensional imaging, color flow and Doppler imaging with no structural abnormalities, no thrombus formation present. Atrial Septum The interatrial septum appears normal with no evidence of a shunt. Aorta The aorta is normal by two-dimensional, color flow and Doppler interrogation. Mitral Valve The mitral valve is normal by two-dimensional, color flow and Doppler interrogation. Trace mitral regurgitation. Aortic Valve The aortic valve is trileaflet and normal by two-dimensional, color flow and Doppler interrogation. There is no significant aortic valve regurgitation. Tricuspid Valve The tricuspid valve is normal by two-dimensional, color flow and Doppler interrogation. There is trace tricuspid valve regurgitation. Pulmonic Valve The pulmonic valve is not well visualized. There is no significant pulmonic valve regurgitation. Vessels The pulmonary artery appears normal. The inferior vena cava pulmonary and hepatic veins appear normal. Pericardium The pericardium is normal by two-dimensional imaging. There is no significant pericardial effusion. CONCLUSIONS Indication: ACS/NSTEMI Normal LV size and wall thickness. Normal LV diastolic function. Estimated EF at 55-60 %. The RV is normal in size and systolic function. Trace mitral and trace tricuspid regurgitation Aimee Andrews (Electronically Signed) Final Date: 18 February 2025 17:31
--- NOTE | 2025-02-18 08:43 | ESPR_ITS ---
<Statement entered by Iesha Cruz MD - 02/22/25 13:38> I personally evaluated examined this patient was brought to the hospital acute coronary syndrome NSTEMI picture continues to have some chest discomfort we will schedule for coronary angiogram cardiac catheter tomorrow evaluated patient with resident physician PGY 2 Dr. Marcio STEPHENS agree with the treatment plan recommendation as documented. Documentation for date of: 02/18/25 Subjective Subjective Interval history: No acute overnight events. Seen and examined at bedside the patient states that her chest pressure has improved and denies any shortness of breath. Plan for cardiac cath tomorrow morning. BP 157/89 and other vital signs stable. Troponin noted to peak at 4.7 and continues to be on heparin drip, aspirin, and Plavix. A1c 5.5%, LDL 44, HDL 37, triglycerides 259. Echo pending. Exam Vital Signs Temp Pulse Resp BP Pulse Ox O2 Del Method O2 Flow Rate 97.0 F 90 25 H 154/100 H 99 Room Air 96 02/18/25 00:00 02/18/25 07:39 02/18/25 07:39 02/18/25 00:00 02/18/25 00:00 02/18/25 00:00 02/17/25 19:25 Narrative Exam General: AOx3, no acute distress, able to speak full sentences HEENT: NC/AT, mucous membranes moist, bilateral sclera anicteric Cardiovascular: regular rate and rhythm, S1/S2 present, no murmurs appreciated Pulmonary: clear to auscultation bilaterally, no rales/rhonchi/wheezes Abdominal: soft, non-tender, non-distended, no rebound/guarding, normal bowel sounds present Musculoskeletal: normal ROM, no peripheral edema Skin: warm and dry, intact, no rashes Neuro: CN II-XII intact, no focal deficits Objective Labs 02/18/25 03:15 02/18/25 03:15 Labs: Laboratory Results - last 24 hr 02/17/25 02/17/25 02/17/25 10:23 10:30 14:40 WBC 12.2 H RBC 5.05 Hgb 13.7 Hct 41.3 MCV 82 MCH 27.1 MCHC 33.2 RDW Std Deviation 40.3 Plt Count 291 Neut % (Auto) 77 Lymph % (Auto) 16 [place] % (Auto) 5 Eos % (Auto) 1 Baso % (Auto) 1 Neut # (Auto) 9.4 H Lymph # (Auto) 2.0 [place]pson # (Auto) 0.6 Eos # (Auto) 0.1 Baso # (Auto) 0.1 Immature Gran # (Auto) 0.03 H Absolute Nucleated RBC 0.00 Immature Gran % 0 Nucleated RBC % 0 PT 10.4 INR 1.0 APTT 28.9 Sodium 140 Potassium 4.2 Chloride 105 Carbon Dioxide 24.6 Anion Gap 10 BUN 10 Creatinine 0.8 Estim Creat Clear Calc 108.8 eGFR > 60 BUN/Creatinine Ratio [address] Glu mg/dL Hemoglobin A1c Calculated Osmolality 278 Calcium 8.6 Corrected Calcium 8.6 Magnesium Total Bilirubin 0.4 AST 14 ALT 11 Alkaline Phosphatase 80 Troponin I 0.023 0.350 H* D B-Natriuretic Peptide < 20 Total Protein 7.0 Albumin 4.3 Globulin 2.7 Albumin/Globulin Ratio 1.6 Triglycerides Cholesterol LDL Cholesterol, Calc HDL Cholesterol Cholesterol/HDL Ratio Lipase 47 TSH Free T4 Urine Opiates Screen Negative Urine Fentanyl Screen Negative Ur Barbiturates Screen Negative U Amphetamin/Meth Scrn Negative U Benzodiazepines Scrn Negative U Cocaine Metab Screen Negative U Marijuana (THC) Screen Negative 02/17/25 02/18/25 20:17 03:15 WBC 11.6 H RBC 4.89 Hgb 13.2 Hct 40.8 MCV 83 MCH 27.0 MCHC 32.4 RDW Std Deviation 41.4 Plt Count 272 Neut % (Auto) 66 Lymph % (Auto) 27 Upson % (Auto) 5 Eos % (Auto) 1 Baso % (Auto) 1 Neut # (Auto) 7.7 Lymph # (Auto) 3.1 [place]pson # (Auto) 0.6 Eos # (Auto) 0.1 Baso # (Auto) 0.1 Immature Gran # (Auto) 0.03 H Absolute Nucleated RBC 0.00 Immature Gran % 0 Nucleated RBC % 0 PT INR APTT 73.0 H D 34.7 D Sodium 139 Potassium 3.4 D Chloride 105 Carbon Dioxide 26.0 Anion Gap 8 BUN 8 L Creatinine 0.7 Estim Creat Clear Calc 124.3 eGFR > 60 BUN/Creatinine Ratio 11 L Glucose [address] Glu mg/dL 111 Hemoglobin A1c 5.5 Calculated Osmolality 275 Calcium 8.6 Corrected Calcium 8.8 Magnesium 2.0 Total Bilirubin 0.5 AST 27 ALT 11 Alkaline Phosphatase 77 Troponin I 1.858 H* D 4.740 H* D B-Natriuretic Peptide Total Protein 6.5 Albumin 3.8 D Globulin 2.7 Albumin/Globulin Ratio 1.4 Triglycerides 259 H Cholesterol 133 LDL Cholesterol, Calc 44 HDL Cholesterol 37 L Cholesterol/HDL Ratio 3.6 L Lipase TSH 1.84 Free T4 1.15 Urine Opiates Screen Urine Fentanyl Screen Ur Barbiturates Screen U Amphetamin/Meth Scrn U Benzodiazepines Scrn U Cocaine Metab Screen U Marijuana (THC) Screen Quality Measures Quality Measures VTE prophylaxis Assessment & Plan Assessment Current Active Medications: Generic Name Dose Route Start Last Admin Trade Name Freq PRN Reason Stop Dose Admin Acetaminophen 650 mg 02/17/25 17:13 Acetaminophen 325 Mg Tablet PO 03/19/25 16:38 Q6H PRN Fever >100.4 or pain Al Hydrox/Mg Hydrox/Simethicone 30 ml 02/17/25 17:11 Mg Hyd/Al Hyd/Lety (Maalox Reg) Susp 30 Ml Udc PO 03/19/25 17:14 Q6H PRN Dyspepsia Aspirin 81 mg 02/18/25 09:00 02/18/25 08:25 Aspirin Ec 81 Mg Tabec PO 03/20/25 08:59 Not Given QDAY ABRAM Atorvastatin Calcium 80 mg 02/17/25 21:00 02/17/25 21:05 Atorvastatin Calcium 20 Mg Tablet PO 03/19/25 20:59 80 mg HS ABRAM Administration Clopidogrel Bisulfate 75 mg 02/18/25 09:00 02/18/25 08:25 Clopidogrel Bisulfate 75 Mg Tablet PO 03/20/25 08:59 Not Given QDAY ABRAM Heparin Sodium/Dextrose 25,000 unit in 250 mls @ 10 mls/hr 02/17/25 17:00 02/18/25 04:45 Heparin In D5w Ivpb IV 03/03/25 16:59 13.744 units/kg/hr .Q24H ABRAM 14.105 mls/hr Protocol Titration 9.744 UNITS/KG/HR Potassium Chloride 10 meq in 100 mls @ 100 mls/hr 02/18/25 07:42 02/18/25 08:09 Kcl Ivpb IV 02/18/25 11:41 100 mls/hr Q1H ABRAM Administration Morphine Sulfate 1 mg 02/17/25 17:10 Morphine Sulf Inj 4 Mg/Ml Vial IVP 02/22/25 17:09 Q6HR PRN PAIN SCALE 4-10(Mod-Sev Ondansetron HCl 4 mg 02/17/25 16:39 Ondansetron Inj 2 Mg/Ml Inj 2 Ml IVP 03/19/25 16:38 Q6H PRN NAUSEA OR VOMITING Protocol Plan Amy Cotton is a 44-year-old female with a past medical history of prediabetes and hypertension who is admitted and cardiology consulted for work- up of ACS. #? Acute coronary syndrome/NSTEMI Presents with abrupt onset substernal chest pressure with associated shortness of breath, nausea, and vomiting. No prior episodes of chest discomfort and no family history of cardiac disease. Risk factors include hypertension but is relatively well-controlled with weight loss. Vital signs stable. Initial troponin negative but increased to 0.35. EKG reviewed and showed sinus rhythm and no signs of ST or T wave abnormalities. Toxicology negative. Although EKG unremarkable, given history and elevated troponins will manage as ACS with plans for cardiac cath. ? Heparin drip ? DAPT with aspirin 81 mg and Plavix 85 mg p.o. daily ? High intensity statin ? Pending echo ? N.p.o. after midnight for cardiac cath tomorrow, 02/19 #Leukocytosis #Pulmonary nodule #Fatty liver #Hypertension ? Management per primary team ----- Plan discussed with attending physician Dr. Anthony Stephens MD PGY-2 Internal Medicine
--- NOTE | 2025-02-18 09:36 | ESPR_ITS ---
<Statement entered by Armin Hamlin MD - 02/18/25 15:43> I have reviewed the note and agree with the resident's assessment & plan with exceptions as below. I have personally reviewed labs, imaging, home meds/prior records, examined the patient, formulated and discussed management plan with my attending Patient was seen and evaluated at bedside this morning. No overnight. Patient's troponin continues to uptrend, but peaked at 4.7 and then down trended today. Patient will continue heparin, aspirin, and Plavix for now and will likely get heart cath tomorrow. Currently does not complain of any chest pain. Otherwise no other complaint at this time. 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 Documentation for date of: 02/18/25 Subjective Subjective Interval history: No acute overnight events. Patient seen and examined at bedside. Reports chest tightness is much better, 4/10 currently but tolerable. Did not requiring any overnight pain medication. Denies any palpitations, shortness of breath, abdominal pain. Vitals labs reviewed. SBP 140-150, heart rate 80s to 90s. WBC downtrending to 11.6. Potassium 3.4 repleted with 40 mEq. A1c 5.5, troponins initially uptrending peaked at 4.7 now downtrending today. Triglycerides 251, cholesterol initially 33, LDL 44, HDL 37. Per cardiology, cath to be done tomorrow. Continue heparin drip, aspirin, Plavix, statin. Started losartan 25 mg for hypertension. Exam Vital Signs Temp Pulse Resp BP Pulse Ox O2 Del Method O2 Flow Rate 97.0 F 90 25 H 154/100 H 99 Room Air 96 02/18/25 00:00 02/18/25 07:39 02/18/25 07:39 02/18/25 00:00 02/18/25 00:00 02/18/25 00:00 02/17/25 19:25 Narrative Exam GENERAL: AOx3, obese well groomed female HEENT: mucous membranes moist, bilateral sclera anicteric CARDIOVASCULAR: regular rate and rhythm, S1/S2 present, no murmurs appreciated PULMONARY: clear to auscultation bilaterally, no rales/rhonchi/wheezes ABDOMINAL: soft, non-tender, non-distended, no rebound/guarding, bowel sounds present EXTREMITIES: no peripheral edema SKIN: warm and dry, intact, no rashes NEURO: CN II-XII grossly intact, no focal deficits, alert, following commands Objective Labs 02/18/25 03:15 02/18/25 03:15 Labs: Laboratory Results - last 24 hr 02/17/25 02/17/25 02/17/25 10:23 10:30 14:40 WBC 12.2 H RBC 5.05 Hgb 13.7 Hct 41.3 MCV 82 MCH 27.1 MCHC 33.2 RDW Std Deviation 40.3 Plt Count 291 Neut % (Auto) 77 Lymph % (Auto) 16 [place] % (Auto) 5 Eos % (Auto) 1 Baso % (Auto) 1 Neut # (Auto) 9.4 H Lymph # (Auto) 2.0 [place] # (Auto) 0.6 Eos # (Auto) 0.1 Baso # (Auto) 0.1 Immature Gran # (Auto) 0.03 H Absolute Nucleated RBC 0.00 Immature Gran % 0 Nucleated RBC % 0 PT 10.4 INR 1.0 APTT 28.9 Sodium 140 Potassium 4.2 Chloride 105 Carbon Dioxide 24.6 Anion Gap 10 BUN 10 Creatinine 0.8 Estim Creat Clear Calc 108.8 eGFR > 60 BUN/Creatinine Ratio [address] Glu mg/dL Hemoglobin A1c Calculated Osmolality 278 Calcium 8.6 Corrected Calcium 8.6 Magnesium Total Bilirubin 0.4 AST 14 ALT 11 Alkaline Phosphatase 80 Troponin I 0.023 0.350 H* D B-Natriuretic Peptide < 20 Total Protein 7.0 Albumin 4.3 Globulin 2.7 Albumin/Globulin Ratio 1.6 Triglycerides Cholesterol LDL Cholesterol, Calc HDL Cholesterol Cholesterol/HDL Ratio Lipase 47 TSH Free T4 Urine Opiates Screen Negative Urine Fentanyl Screen Negative Ur Barbiturates Screen Negative U Amphetamin/Meth Scrn Negative U Benzodiazepines Scrn Negative U Cocaine Metab Screen Negative U Marijuana (THC) Screen Negative 02/17/25 02/18/25 20:17 03:15 WBC 11.6 H RBC 4.89 Hgb 13.2 Hct 40.8 MCV 83 MCH 27.0 MCHC 32.4 RDW Std Deviation 41.4 Plt Count 272 Neut % (Auto) 66 Lymph % (Auto) 27 [place] % (Auto) 5 Eos % (Auto) 1 Baso % (Auto) 1 Neut # (Auto) 7.7 Lymph # (Auto) 3.1 [place] # (Auto) 0.6 Eos # (Auto) 0.1 Baso # (Auto) 0.1 Immature Gran # (Auto) 0.03 H Absolute Nucleated RBC 0.00 Immature Gran % 0 Nucleated RBC % 0 PT INR APTT 73.0 H D 34.7 D Sodium 139 Potassium 3.4 D Chloride 105 Carbon Dioxide 26.0 Anion Gap 8 BUN 8 L Creatinine 0.7 Estim Creat Clear Calc 124.3 eGFR > 60 BUN/Creatinine Ratio 11 L Glucose [address] Glu mg/dL 111 Hemoglobin A1c 5.5 Calculated Osmolality 275 Calcium 8.6 Corrected Calcium 8.8 Magnesium 2.0 Total Bilirubin 0.5 AST 27 ALT 11 Alkaline Phosphatase 77 Troponin I 1.858 H* D 4.740 H* D B-Natriuretic Peptide Total Protein 6.5 Albumin 3.8 D Globulin 2.7 Albumin/Globulin Ratio 1.4 Triglycerides 259 H Cholesterol 133 LDL Cholesterol, Calc 44 HDL Cholesterol 37 L Cholesterol/HDL Ratio 3.6 L Lipase TSH 1.84 Free T4 1.15 Urine Opiates Screen Urine Fentanyl Screen Ur Barbiturates Screen U Amphetamin/Meth Scrn U Benzodiazepines Scrn U Cocaine Metab Screen U Marijuana (THC) Screen Quality Measures Quality Measures VTE prophylaxis Assessment & Plan Assessment Current Active Medications: Generic Name Dose Route Start Last Admin Trade Name Freq PRN Reason Stop Dose Admin Acetaminophen 650 mg 02/17/25 17:13 Acetaminophen 325 Mg Tablet PO 03/19/25 16:38 Q6H PRN Fever >100.4 or pain Al Hydrox/Mg Hydrox/Simethicone 30 ml 02/17/25 17:11 Mg Hyd/Al Hyd/Lety (Maalox Reg) Susp 30 Ml Udc PO 03/19/25 17:14 Q6H PRN Dyspepsia Aspirin 81 mg 02/18/25 09:00 02/18/25 08:25 Aspirin Ec 81 Mg Tabec PO 03/20/25 08:59 Not Given QDAY ABRAM Atorvastatin Calcium 80 mg 02/17/25 21:00 02/17/25 21:05 Atorvastatin Calcium 20 Mg Tablet PO 03/19/25 20:59 80 mg HS ABRAM Administration Clopidogrel Bisulfate 75 mg 02/18/25 09:00 02/18/25 08:25 Clopidogrel Bisulfate 75 Mg Tablet PO 03/20/25 08:59 Not Given QDAY ABRAM Heparin Sodium/Dextrose 25,000 unit in 250 mls @ 10 mls/hr 02/17/25 17:00 02/18/25 04:45 Heparin In D5w Ivpb IV 03/03/25 16:59 13.744 units/kg/hr .Q24H ABRAM 14.105 mls/hr Protocol Titration 9.744 UNITS/KG/HR Potassium Chloride 10 meq in 100 mls @ 100 mls/hr 02/18/25 07:42 02/18/25 09:14 Kcl Ivpb IV 02/18/25 11:41 100 mls/hr Q1H ABRAM Administration Morphine Sulfate 1 mg 02/17/25 17:10 Morphine Sulf Inj 4 Mg/Ml Vial IVP 02/22/25 17:09 Q6HR PRN PAIN SCALE 4-10(Mod-Sev Ondansetron HCl 4 mg 02/17/25 16:39 Ondansetron Inj 2 Mg/Ml Inj 2 Ml IVP 03/19/25 16:38 Q6H PRN NAUSEA OR VOMITING Protocol Plan Amy Cotton 44F pmhx significant for HTN, prediabetes, and 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 #NSTEMI, type I vs type II #Leukocytosis, likely reactive Presented with acute chest tightness, worse in deep inspiration. Per chart review, has a hx of chest pain in 2019 and was supposed to see a truck hop. Does not have truck hop at this time. 06/2024, prescribed short course of prednisone for Rodriguez's palsy. Admission WBC 12.2, trop 0.023->0.350, BNP<20. UDS neg. CXR no interval PNA or pulmonary edema, 3mm pulmonary nodule L upper lobe, EKG sinus rhythm rate [address] segment changes, Abd US normal CBD. Ddx: coronary vasospasm vs NSTEMI type 1 vs autoimmune vs infectious, low suspicion as patient denies urinary symptoms and CXR neg, low suspicion for pericarditis given benign EKG and denial of recent illness Trops 0.023->0.350->1.858->4.740->3.825 Plan: - Cardiology consulted: cath tomorrow - Heparin drip, ASA 81 mg QD, Plavix 75 mg QD and atorvastatin 80 mg qhs - NPO at midnight - Keep K>4 and Mg>2 at all times - Morphine 1 mg q6h for pain - F/u TTE #Prediabetes Per history. On Ozempic 2 mg qwk on Mondays. A1c 5.5, trig 259, chol 133, LDL 44, HDL 27, TSH wnl Plan: - CTM glucose #HTN Reported well controlled with Ozempic and weight loss. Plan: - Started losartan 25 mg QD Hospital management: Lines: PIV Diet: cardiac, NPO at midnight Bowel: none GI prophylaxis: none DVT prophylaxis: heparin drip Disposition: tele, NSTEMI cardiac cath tomorrow CODE STATUS: FULL CODE Plan of care discussed with attending Dr. Morales, and PGY-2 Dr. Paulino. Yamila Carlin, PGY-1 Internal Medicine Attending Provider Attestation/Addendum I have seen and examined the patient. I was physically present for the rodas portions of the services provided including history, physical exam, diagnosis, treatment plans and orders. I agree with assessment and plan of care as documented by residents. Patient seen and examined at bedside this morning. Appears comfortable, states her chest pain has been improving but still present. Vital signs are stable except for mild hypertension. WBC count has been downtrending, troponin up trended and peaked at 4.740. Received potassium repletion. Denies shortness of breath or palpitations. Continues to be on heparin drip, aspirin and Plavix along with atorvastatin, cardiology following closely, patient is planned for cardiac catheterization tomorrow, appreciate recommendations. Started on losartan 25 daily. 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 Chris Morales MD
[2025-02-18] MEDS: ASPIRIN EC 81 MG TABEC PO (10:34)
[2025-02-18] MEDS: CLOPIDOGREL BISULFATE 75 MG TABLET PO (10:34)
[2025-02-18 10:35] LABS: Troponin I 3.825 ng/mL (0.0-0.045)
[2025-02-18 11:34] LABS: Partial Thromboplastin Time 44.1 Seconds (22.0-36.0)
[2025-02-18] MEDS: HEPARIN SOD INJ 5000 UNIT/ML VIAL 2000 UNIT IVP (11:51)
--- NOTE | 2025-02-18 12:02 | PC.SS ---
Patient is alert/oriented. Patient was able to verify demographics. Patient states she is employed at [employer]. She is independent with ADL's. No DME. Patient resides with family. Admitted for chest pain. Patient follows with Dr. Haynes @ [facility]. Last appt was 1-2 months ago. No other speciality physicians. Pharmacy: [facility]. Patient d/c plans are to return home. Alt medical decision maker: Mother, Arcelia Cotton,
[2025-02-18] MEDS: LOSARTAN POTASSIUM 25 MG TABLET PO (13:35)
[2025-02-18] MEDS: Heparin/D5w 25K 250 ML Ivpb 25,000 UNIT/250 ML BAG 16.157 UNIT IV (14:23)
[2025-02-18 18:52] LABS: Partial Thromboplastin Time 57.9 Seconds (22.0-36.0)
[2025-02-18] MEDS: ATORVASTATIN CALCIUM 20 MG TABLET 80 MG PO (20:02)
[2025-02-19] VITALS (13 sets, daily range): BP systolic 131–154; BP diastolic 81–94; PULSE 59–95; RESP 15–23; TEMP 36.1–36.8; O2SAT 93–98; BMI 38.1
[2025-02-19 01:32] LABS: Partial Thromboplastin Time 58.3 Seconds (22.0-36.0)
[2025-02-19 05:48] LABS: Basophils # (Auto) 0.1 Thou/mm3 (0.0-0.2); Basophils % (Auto) 1 % (0-2.5); Eosinophils # (Auto) 0.3 Thou/mm3 (0.0-0.5); Eosinophils % (Auto) 2 % (0-10); Hematocrit 40.3 % (36.0-46.0); Hemoglobin 13.5 g/dL (12.0-16.0); Immature Granulocytes Auto 0.05 Thou/mm3 (0.00-0.00); Lymphocytes # (Auto) 2.8 Thou/mm3 (1.0-4.8); Lymphocytes % (Auto) 24 % (10-50); Mean Corpuscular HGB Conc 33.5 g/dl (31.0-37.0); Mean Corpuscular Hemoglobin 27.7 pg (25.0-35.0); Mean Corpuscular Volume 83 fL (80-100); Monocytes # (Auto) 0.7 Thou/mm3 (0.0-0.8); Monocytes % (Auto) 6 % (0-12); Neutrophils # (Auto) 7.7 Thou/mm3 (1.8-7.7); Neutrophils % (Auto) 67 % (37-80); Nucleated Red Blood Cell # 0.00 Thou/mm3 (0.00-0.00); Nucleated Red Blood Cell % 0 /100 WBC (0); Platelet Count 257 Thou/mm3 (140-440); RDW Standard Deviation 41.7 fL (36.4-46.3); Red Blood Count 4.87 Miln/mm3 (4.00-5.20); White Blood Count 11.5 Thou/mm3 (3.6-11.0)
[2025-02-19 06:18] LABS: INR 1.0 (0.9-1.3); Partial Thromboplastin Time 62.0 Seconds (22.0-36.0); Prothrombin Time 10.4 Seconds (9.0-12.2)
[2025-02-19 06:23] LABS: Alanine Aminotransferase 11 U/L (10-49); Albumin, Serum 4.1 gm/dL (3.5-5.0); Albumin/Globulin Ratio 1.4 (1.2-2.2); Alkaline Phosphatase 81 U/L (46-116); Anion Gap 9 (7-16); Aspartate Amino Transferase < 8 U/L (0-34); BUN/Creatinine Ratio 9 Ratio (12-20); Bilirubin,Total 0.4 mg/dL (0.3-1.2); Blood Urea Nitrogen 7 mg/dL (9-23); Calcium 8.8 mg/dL (8.3-10.6); Calcium (Corrected) 8.8 mg/dL (8.5-10.1); Carbon Dioxide 26.2 mMol/L (20.0-31.0); Chloride 105 mMol/L (98-107); Creatinine (Component) 0.8 mg/dL (0.6-1.3); Estimated Creatinine Clearance 109.5 mL/min (>60); Globulin 2.9 gm/dL (2.3-3.5); Glucose 105 mg/dL (74-106); Magnesium 2.4 mg/dL (1.6-2.6); Osmolality,Calculated 277 (275-295); Potassium 4.2 mMol/L (3.4-5.1); Sodium 140 mMol/L (136-145); Total Protein 7.0 gm/dL (5.7-8.2); eGFR > 60 See Note
--- NOTE | 2025-02-19 06:43 | PC.NURSE ---
Report given to LAUREN Sweeney from cath laboratory technician
--- NOTE | 2025-02-19 09:24 | PC.NURSE ---
Per Dr Tesfaye ward to hold Coozar for now.
--- NOTE | 2025-02-19 10:35 | ESOP_ITS ---
RE: MAUREEN DODOSN : 1980 DATE OF OPERATION: 02/19/2025 PROCEDURES PERFORMED: 1. Emergency diagnostic left heart cardiac catheterization, selective coronary angiogram, left ventricular angiogram, CPT 16785. 2. Ultrasound-guided access of right radial artery. 3. Conscious sedation 30 minute duration. DIAGNOSES: Coronary artery disease, acute non-ST segment elevation myocardial infarction, acute coronary syndrome. HISTORY AND INDICATIONS: The patient is a 44-year-old female with no major medical problems, admitted to the hospital with crushing chest pain lasted for more than an hour at rest, classic angina pectoris. Cardiac enzymes were elevated, initial was normal, went up to 4.0 suggests of acute non-ST segment elevation myocardial infarction. Because of these findings, the patient was given aspirin and heparin anticoagulation and recommended to have coronary angiogram and cardiac catheterization on emergency basis. PROCEDURE IN DETAIL: The patient brought to the cardiac catheterization laboratory. Informed consent was obtained. A 2 mg of Versed and 100 mcg of fentanyl was given for conscious sedation. Right radial approach was taken. Right radial artery cannulated with micropuncture technique. 6-[place] was introduced and selective right and left coronary angiogram performed by TIG-4 diagnostic catheter. Left heart catheterization and left ventricular angiogram performed with TIG-4 diagnostic catheter. The patient tolerated the procedure well with no complications. When I did cannulate a conus branch with slight contrast hangup, there was a brief run of VF, which resolved completely spontaneously, did not require any shock. The patient also appeared to have some sleep apnea during the sleep as saturation dropped significantly and but once she is awake, saturations were excellent. The patient tolerated the procedure well with no complications. FINDINGS: Coronary angiogram showed following findings: 1. Right coronary artery is large and dominant, gives a PDA, posterolateral branches, all of them appear normal. No significant obstructive disease detected. No missing branches seen. 2. Left coronary system: Left main coronary artery is normal. Left anterior descending artery appears normal. Circumflex artery is normal. No evidence of obstructive coronary artery disease. No evidence of missing branches. Left ventricular pressure is 105/10. Aortic pressure 110/70. No gradient across the aortic valve. Left ventricular angiogram showed normal left ventricular wall motion, ejection fraction of 70%. SUMMARY OF FINDINGS AND SUGGESTIONS: 1. Nonobstructive normal epicardial coronary arteries. 2. Normal left ventricular function. RECOMMENDATION: The patient was reassured with the absence of significant obstructive coronary artery disease. She did have non-ST segment elevation myocardial infarction with troponin elevation, possibly type 2 troponin due to myocardial stress induced or coronary spasm. In any event, prognosis is excellent. The patient can be discharged home, recommend to have coronary risk factor modification, low fat diet and if she has recurrent chest pain, may consider Prinzmetal angina pectoris as a diagnosis. DT: 08:53:32 TT: 09:42:00 Ref: [id number] - TID: [id number]
--- NOTE | 2025-02-19 14:45 | ESPR_ITS ---
<Statement entered by Iesha Cruz MD - 02/22/25 13:39> I personally evaluate the patient examined underwent coronary angiogram today showed evidence of nonobstructive normal coronary arteries normal left ventricle function patient has type II myocardial infarction possible coronary spasm or other mechanisms prognosis excellent patient can be discharged home in stable condition to have follow-up as an outpatient with primary care physician. Evaluate the patient with resident physician PGY 2 Dr. Marcio brady agree with the treatment plan recommendation as documented Documentation for date of: 02/19/25 Subjective Subjective Interval history: No acute overnight events. Underwent cardiac cath in a.m. and findings include nonobstructive, normal coronary arteries and LV function. Findings were discussed with patient and family and suspect that she had type II troponins due to stress or coronary spasm. During cath noted to become slightly hypoxic and decreasing respirations and recommended outpatient sleep study. Exam Vital Signs Temp Pulse Resp BP Pulse Ox O2 Del Method O2 Flow Rate 97.9 F 86 18 144/88 H 97 Room Air 96 02/19/25 11:31 02/19/25 12:00 02/19/25 11:31 02/19/25 11:31 02/19/25 11:31 02/19/25 11:31 02/18/25 12:00 Narrative Exam General: AOx3, no acute distress, able to speak full sentences HEENT: NC/AT, mucous membranes moist, bilateral sclera anicteric Cardiovascular: regular rate and rhythm, S1/S2 present, no murmurs appreciated Pulmonary: clear to auscultation bilaterally, no rales/rhonchi/wheezes Abdominal: soft, non-tender, non-distended, no rebound/guarding, normal bowel sounds present Musculoskeletal: normal ROM, no peripheral edema Skin: warm and dry, intact, no rashes Neuro: CN II-XII intact, no focal deficits Objective Labs 02/19/25 05:08 02/19/25 05:08 Labs: Laboratory Results - last 24 hr 02/18/25 02/19/25 02/19/25 18:03 00:18 05:08 WBC 11.5 H RBC 4.87 Hgb 13.5 Hct 40.3 MCV 83 MCH 27.7 MCHC 33.5 RDW Std Deviation 41.7 Plt Count 257 Neut % (Auto) 67 Lymph % (Auto) 24 Roberts % (Auto) 6 Eos % (Auto) 2 Baso % (Auto) 1 Neut # (Auto) 7.7 Lymph # (Auto) 2.8 Roberts # (Auto) 0.7 Eos # (Auto) 0.3 Baso # (Auto) 0.1 Immature Gran # (Auto) 0.05 H Absolute Nucleated RBC 0.00 Immature Gran % 0 Nucleated RBC % 0 PT 10.4 INR 1.0 APTT 57.9 H D 58.3 H 62.0 H Sodium 140 Potassium 4.2 D Chloride 105 Carbon Dioxide 26.2 Anion Gap 9 BUN 7 L Creatinine 0.8 Estim Creat Clear Calc 109.5 eGFR > 60 BUN/Creatinine Ratio 9 L Glucose 105 Calculated Osmolality 277 Calcium 8.8 Corrected Calcium 8.8 Magnesium 2.4 Total Bilirubin 0.4 AST < 8 ALT 11 Alkaline Phosphatase 81 Total Protein 7.0 Albumin 4.1 Globulin 2.9 Albumin/Globulin Ratio 1.4 Quality Measures Quality Measures VTE prophylaxis Assessment & Plan Assessment Current Active Medications: Generic Name Dose Route Start Last Admin Trade Name Freq PRN Reason Stop Dose Admin Acetaminophen 650 mg 02/19/25 09:45 Acetaminophen 325 Mg Tablet PO 03/19/25 16:38 Q6H PRN Fever >100.4 or pain 1-3 Al Hydrox/Mg Hydrox/Simethicone 30 ml 02/17/25 17:11 Mg Hyd/Al Hyd/Lety (Maalox Reg) Susp 30 Ml Udc PO 03/19/25 17:14 Q6H PRN Dyspepsia Atorvastatin Calcium 80 mg 02/17/25 21:00 02/18/25 20:02 Atorvastatin Calcium 20 Mg Tablet PO 03/19/25 20:59 80 mg HS ABRAM Administration Losartan Potassium 50 mg 02/19/25 09:00 02/19/25 10:00 Losartan Potassium 25 Mg Tablet PO 03/21/25 08:59 Not Given QDAY ABRAM Morphine Sulfate 1 mg 02/17/25 17:10 Morphine Sulf Inj 4 Mg/Ml Vial IVP 02/22/25 17:09 Q6HR PRN PAIN SCALE 4-10(Mod-Sev Ondansetron HCl 4 mg 02/17/25 16:39 Ondansetron Inj 2 Mg/Ml Inj 2 Ml IVP 03/19/25 16:38 Q6H PRN NAUSEA OR VOMITING Protocol Plan Amy Cotton is a 44-year-old female with a past medical history of prediabetes and hypertension who is admitted and cardiology consulted for work- up of ACS. #? Acute coronary syndrome/NSTEMI Presents with abrupt onset substernal chest pressure with associated shortness of breath, nausea, and vomiting. No prior episodes of chest discomfort and no family history of cardiac disease. Risk factors include hypertension but is relatively well-controlled with weight loss. Vital signs stable. Initial troponin negative but increased to 0.35. EKG reviewed and showed sinus rhythm and no signs of ST or T wave abnormalities. Toxicology negative. Cardiac cath showed nonobstructive, normal coronary arteries and LV function. Please see operative report for details. ? Stable for discharge without need for DAPT or statin #Leukocytosis #Pulmonary nodule #Fatty liver #Hypertension ? Management per primary team ----- Plan discussed with attending physician Dr. Anthony Brady MD PGY-2 Internal Medicine
--- NOTE | 2025-02-19 14:54 | ESDS_ITS ---
Planned Discharge Date 02/19/25 DS: Providers Provider Date of admission: 02/17/25 16:39 Primary care physician: Yair Haynes MD Admitting Provider: Chris Morales MD Attending Provider on Admission: Chris Morales MD Consults: 02/17/25 15:25 Consult to Cardiology Stat Comment: Consulting Provider: Iesha Cruz Attending Provider on DC: Chris Morales MD Discharging Provider: Chris Moarles MD Diagnosis Problem List Completed Was Problem List Reviewed/Reconciled?: Yes Hospital Course - Hospitalist Hospital Course Hospital course: Patient is a 44 years old female with past medical history of hypertension, prediabetes on Ozempic, history of Rodriguez's palsy who presented to the ED with complaint of chest tightness that started on the morning of presentation. Her symptoms started improving while in the ER lobby but she continued to have pain during inspiration and had hard time taking a deep breath. In the ED, she was hypertensive with blood pressure of 143/93, was found to have elevated troponin of 0.023 which increased to 0.350 on next lab. Cardiology was consulted by ED, recommended starting heparin drip and admission for NSTEMI. During hospitalization, her troponin continue to uptrend and peaked at 4.740. She was continued on heparin drip, aspirin, Plavix and atorvastatin. Patient underwent cardiac catheterization today was not found to have any obstructive disease. Patient seen and examined after cardiac catheterization today at bedside. Appears comfortable and denies any new complaints. Her chest pain has resolved completely, denies any shortness of breath or palpitations. Vital signs and lab results have been stable. With negative catheterization, NSTEMI likely type II possibly secondary to stress-induced troponin leak versus coronary spasm. Patient deemed stable for discharge home on her home medications. Recommended to follow-up with her PCP and cardiology in 1 to 2 weeks of discharge. Recommended to discuss with her PCP regarding starting antihypertensives if patient continues to have high blood pressure even at home. #NSTEMI, Type II #Leukocytosis, likely reactive #Prediabetes #HTN Time Spent with Patient Time attestation: Total time spent providing and/or coordinating discharge services: 32 min Time spent: Greater than 30 minutes Discharge Results Labs Diagrams: 02/19/25 05:08 02/19/25 05:08 Labs: Short CBC 02/19/25 Range/Units 05:08 WBC 11.5 H (3.6-11.0) Thou/mm3 Hgb 13.5 (12.0-16.0) g/dL Hct 40.3 (36.0-46.0) % Plt Count 257 (140-440) Thou/mm3 BMP 02/19/25 05:08 Sodium 140 Potassium 4.2 D Chloride 105 Carbon Dioxide 26.2 BUN 7 L Creatinine 0.8 Glucose 105 Calcium 8.8 Liver Function 02/19/25 Range/Units 05:08 Total Bilirubin 0.4 (0.3-1.2) mg/dL AST < 8 (0-34) U/L ALT 11 (10-49) U/L Alkaline Phosphatase 81 (46-116) U/L Albumin 4.1 (3.5-5.0) gm/dL Exam Vital Signs Temp Pulse Resp BP Pulse Ox O2 Del Method O2 Flow Rate 97.9 F 86 18 144/88 H 97 Room Air 96 02/19/25 11:31 02/19/25 12:00 02/19/25 11:31 02/19/25 11:31 02/19/25 11:31 02/19/25 11:02/18/25 12:00 Narrative GENERAL: Well built male/female, in no acute distress, laying comfortably on bed HEENT: Normocephalic, atraumatic, extraocular movements intact, pupils equal and reactive to light NECK: Supple, no JVD or bruits. CARDIOVASULAR: RRR, S1 and S2 heard, without murmur, rubs or gallops. LUNGS/CHEST: Clear to auscultation bilaterally. No rails, rhonchi, or wheezing. ABDOMEN: Soft, nontender, with normal bowel sounds. No rebound, rigidity, or guarding. EXTREMITIES: No edema, clubbing or cyanosis. No joint deformity. Able to move all limbs. SKIN: Warm and dry without rashes. NEURO: Alert, awake and oriented x4. Cranial nerves: II through XII grossly intact. normal speech, able to answer questions and follow commands appropriately, strength and sensation normal and equal bilaterally, no focal neurological deficits PSYCHIATRIC: Normal mood and affect. Discharge Plan Plan Patient Disposition: HOME (Self Care) Patient condition on transfer: Stable Care Plan Goals: Please follow up with your PCP and cardiology in 1-2 weeks of discharge Recommended to obtain referral for sleep study with your PCP to rule out Obstructive Sleep Apnea Continue Lifestyle modification with regular exercise, weight loss and healthy diet Continue to monitor your blood pressure closely, if persistently elevated, discussed with your PCP regarding starting blood pressure lowering medications Prescriptions/Referrals Prescriptions/Med Rec: Continued Ozempic 2 mg/dose (8 mg/3 mL) pen injector 2 mg SUBCUT .Weekly Patient Comments: INJECT 2 MG SUBCUTANEOUSLY WEEKLY Referrals: Yair Haynes MD [Primary Care Provider, Family Practice] Patient/Caregiver Discharge Instructions Discharge Activity: return to work once clear Education Materials: Cardiac Catheterization Dc, Preventing Surgical Site Infections, Procedural Sedation, Cardiac Cath Transradial Print Language: Mohawk Activity Restrictions/Additional Instructions: Please call to Schedule a follow up appointment with Dr. Cruz, (Report Programmer), to be seen in his office within one week upon discharge Address: [facility] [place] [address]. Please call to schedule a follow up appointment with your primary care doctor 1- 2 weeks after discharge so he/she can make further recommendations about your overall health condition. DO NOT drive or operate any motor vehicle, heavy equipment, or machinery in the next 24 hours. DO NOT perform any activity that requires you to be fully alert in the next 24 hours. DO NOT sign any documentation in the next 24 hours that requires a full understanding of what you are signing for. Do not perform any strenuous physical activity in the next 5 days. Do not bend or twist your wrist for the next 3 days. Do no lift anything that weights equal or over 5 pounds with your right Arm/Hand within the next 3 days. Perform light activity only with your right Hand/Arm for the next 3 days. Keep your blood pressure under control. If you take blood pressure medication, continue to take it as prescribed, if not contraindicated by your doctor, doing so; helps to prevent post-complications such as bleeding. Take your new/previous medication as directed by the doctor. If there is no changes, continue to take medication at your usual time. After 3 days, start increasing the level of physical activity with your Hand/Arm gradually in the following 5 days. Look out for signs of infection such as tenderness, redness, or drainage to your right wrist. If any, report them to your primary care doctor immediately. You will go home with your right wrist covered by two different dressings, a clear dressing and a Coban wrap. The Coban wrap (Color Dressing on Top) must be removed in 24 hours after it was placed. The clear dressing (Dressing that is attached to your skin) Must be removed in 48 hours after it was placed. If you decide to shower or to take a bath, NOT RECOMMENDED IN THE FIRST 24 HOURS AFTER THE PROCEDURE; please keep dressing clean and dry by covering it. Or, if you prefer, take a sponge bath instead. After removing your dressing, you can gently clean your surgical site with soap and water and pad dry it. DO NOT rub site to prevent complication such as bleeding. DO NOT apply any lotions, creams, or powders on the surgical site until your skin completely heals (5 days or more). NO pools, hot tubs, baths or any activity where wrist is submerged under water until the skin is completely healed. Drink plenty of fluids to flush contrast out of your body. Should you experience any type of complications such as pain, change in color, change in temperature, numbness, or loss of sensation in your Right arm/Wrist, Chest pain, or shortness of breath; PLEASE GO TO THE NEAREST EMERGENCY ROOM IMMEDIATELY. Should you have any other questions or concerns on regards today?s procedure; feel free to contact us to [employer] . Stand Alone Forms: [facility] Award Info., Patient Portal Info Letter Discharge Order Discharge Orders: Discharge (Routine); Ordered 02/19/25 Ordered By: Chris Morales Quality Discharge Quality Measures VTE prophylaxis
--- NOTE | 2025-02-19 15:28 | PC.SS ---
Rounding Note: Plan is for patient to d/c today.
== END 2025-02-19 15:57 | disposition home or self-care (01) | DRG 190 ==
LOC: SERX 13:25 → SERHOLD 17:13 → S2NX 21:46
PROVIDERS: Internal Medicine Cardiovascular Disease; Nurse Practitioner Family; Student in an Organized Health Care Education/Training Program; Admitting Provider Student in an Organized Health Care Education/Training Program; Emergency Provider Emergency Medicine; PCP Family Medicine; Visit Provider Student in an Organized Health Care Education/Training Program
DX: I21.4 Non-ST elevation (NSTEMI) myocardial infarction (principal); I10 Essential (primary) hypertension; R73.03 Prediabetes; I25.10 Atherosclerotic heart disease of native coronary artery without angina pectoris; R91.1 Solitary pulmonary nodule; K76.0 Fatty (change of) liver, not elsewhere classified; D72.829 Elevated white blood cell count, unspecified; Z79.02 Long term (current) use of antithrombotics/antiplatelets; Z79.82 Long term (current) use of aspirin; G51.0 Bell's palsy
CPT/HCPCS: 36415; 71045; 76705; 80053; 80061; 80307; 83036; 83690; 83735; 83880; 84439; 84443; 84484; 85025; 85610; 85730; 93005; 93306; 96365; 96366; 99152; 99284; A4649; C1887; C1894; J0168; J0461; J1643; J1644; J2250; J2312; J2371; J3010; J3480; J3490; Q9967; A9270; J2305